=== PATIENT | male | born 2000 | race Caucasian/White ===

== ENCOUNTER 2018-09-22 14:00 | Emergency (ER) | payer BC, OTHER ==
--- NOTE | 2018-09-22 14:14 | PDOC ---
Attending Attestation - Resident Resident Name: Bethany Baig - HPI HPI: 09/22/18 15:21 Pt presents to the ED complaining of nausea and vomiting that occurs at 10 pm each night. Patient feels completely well during other times of the day. Initially, the vomit was blood streaked. This has now resolved, and the vomit now looks like the food he has eaten. However, he has had blood streaked stool for the last two days. Denies abdominal pain, fever, or other complaints. Denies diarrhea or pain with defecation. - Physicial Exam PE: 09/22/18 15:30 Agree with resident exam. Patient is alert and in no acute distress. Abdomen is non tender, non distended without guarding or rebound. - Medical Decision Making 09/22/18 15:31 Pt presents to the ED complaining of blood streaked stool. Hemoccult negative in the ED. Will check labs to evaluate for severe anemia, likely discharge home if negative.
--- NOTE | 2018-09-22 14:37 | PDOC ---
History of Present Illness - General Chief Complaint: Vomiting Blood Stated Complaint: BLOOD IN EMESIS/STOOL Time Seen by Provider: 09/22/18 14:11 History Source: Patient Exam Limitations: No Limitations - History of Present Illness Initial Comments: 09/22/18 14:36 Pt is a previously healthy 18yo M presenting to ED with complaints of hematemesis that occured Wednesday and Wednesday night and an episode of bloody stools today. Pt says every night at 10pm since Wednesday he has been vomiting. Only endorses hematemsis Wednesday and Wednesday with blood in vomitus, not coffee ground. Today he endorses black stools with blood on tp. He went to a [employer] and was told to come to the ED. He denies abdominal pain, drinking, lightheadedness , recent surgeries. abdominal surgery when infant but no problems since then. Past History - Past Medical History Allergies/Adverse Reactions: Allergies Allergy/AdvReac Type Severity Reaction Status Date / Time dapsone Allergy Severe Verified 09/22/18 14:02 Home Medications: Ambulatory Orders NK [No Known Home Medication] 09/22/18 Review of Systems - Review of Systems Constitutional: No: Symptoms Reported HEENTM: No: Symptoms Reported Respiratory: No: Symptoms reported Cardiac (ROS): No: Symptoms Reported ABD/GI: Yes: See HPI, Blood Streaked Bowels, Rectal Bleeding, Vomiting, Tarry Stools. No: Constipated, Diarrhea, Difficulty Swallowing, Nausea, Abdominal cramping : No: Symptoms Reported Musculoskeletal: No: Symptoms Reported Integumentary: No: Symptoms Reported Neurological: No: Symptoms reported *Physical Exam - Physical Exam General Appearance: Yes: Nourished, Appropriately Dressed. No: Apparent Distress HEENT: positive: EOMI, NANCI, Pharynx Normal. negative: Pale Conjunctivae, Scleral Icterus (R), Scleral Icterus (L) Neck: positive: Trachea midline, Supple Respiratory/Chest: positive: Lungs Clear, Normal Breath Sounds. negative: Rales , Rhonchi, Stridor, Wheezing Cardiovascular: positive: Regular Rhythm, Regular Rate, S1, S2. negative: Edema , JVD, Murmur Vascular Pulses: Carotid (R): 2+, Carotid (L): 2+, Dorsalis-Pedis (R): 2+, Doralis-Pedis (L): 2+ Gastrointestinal/Abdominal: positive: Normal Bowel Sounds, Soft. negative: Distended, Guarding, Rebound, Tenderness Rectal Exam: positive: heme negative stool, normal rectal tone. negative: melena, decreased tone, hemorrhoids Musculoskeletal: negative: CVA Tenderness Extremity: positive: Normal Capillary Refill Integumentary: positive: Normal Color, Dry, Warm Neurologic: positive: soda clerk II-XII NML intact, Fully Oriented, Alert, Normal Mood/ Affect, Normal Response, Motor Strength 02/19 ED Treatment Course - LABORATORY CBC & Chemistry Diagram: 09/22/18 14:59 09/22/18 14:59 - ADDITIONAL ORDERS Additional order review: Laboratory Results 09/22/18 14:20 Stool Occult Blood Negative Medical Decision Making - Medical Decision Making 09/22/18 19:12 Pt is a previously healthy 18yo M presenting to ED with complaints of hematemesis that occured Wednesday and Wednesday night and an episode of bloody stools today. Pt says every night at 10pm since Wednesday he has been vomiting. Only endorses hematemsis Wednesday and Wednesday with blood in vomitus, not coffee ground. Today he endorses black stools with blood on tp. He went to [facility] [employer] and was told to come to the ED. He denies abdominal pain, drinking, lightheadedness , recent surgeries. abdominal surgery when infant but no problems since then. Vitals: wnl PE: benign. upper v. lower gi bleed, fistula. -cbc, cmp, pt/inr, stool occult, t+s. All labs wnl. Pt not having any symptoms. Can be DC home. Given follow up for pmd at [facility] and given GI referral. PT is hemodynamically stable and can be dc home. Pt agreed to plan. *DC/Admit/Observation/Transfer Diagnosis at time of Disposition: Vomiting Qualifiers: Vomiting type: hematemesis Nausea presence: without nausea Qualified Code(s): K92.0 - Hematemesis - Discharge Dispostion Disposition: HOME Condition at time of disposition: Good - Referrals - Patient Instructions Additional Instructions: You were seen here today for evaluation of blood in the stool and vomit. Your lab tests show that you do not have blood in the stool and the rest of your labs are normal. I recommend that you see a primary care doctor for further evaluation and management of your symptoms. You can call . There are a few primary care doctors that you can see and schedule an appointment with. If your symptoms continue, you can make an appointment with a GI doctor who specializes with the stomach and intestines. Dr. Rubin: Try not to take NSAID medications like ibuprofen or Advil, refrain from drinking. If you have stomach pains, you can take over the counter antacids like Pepcid or Prilosec. Come back to the emergency room if you continue to have blood in the vomit, you have blood in the stools, you feel lightheaded, you have abdominal pain, you pass out or if any new concerning symptom develops. Thank you - Post Discharge Activity
[2018-09-22 15:01] VITALS: BP 147/83; PULSE 82; TEMP 98; BMI 27.6
[2018-09-22 15:20] LABS: ACTIVATED PTT 25.3 SECONDS (25.2-36.5)
[2018-09-22 15:22] LABS: ALBUMIN 4.4 g/dl (3.5-5.0); ALK PHOS 69 U/L (32-92); ANION GAP 6 MMOL/L (8-16); BILIRUBIN,TOTAL 0.7 mg/dl (0.2-1.0); BLOOD UREA NITROGEN 15 mg/dl (7-18); CALCIUM 9.3 mg/dl (8.4-10.2); CHLORIDE 100 mmol/L (98-107); CO2 29 mmol/L (22-28); CREATININE 0.8 mg/dl (0.6-1.3); GLUCOSE,RANDOM 96 mg/dl (74-106); POTASSIUM 4.2 mmol/L (3.5-5.1); SGOT/AST 25 U/L (10-42); SGPT/ALT 35 U/L (10-40); SODIUM 135 mmol/L (136-145); TOT PROT 7.5 g/dl (6.4-8.3)
[2018-09-22 15:24] LABS: INR 1.17 (0.82-1.09); PROTHROMBIN TIME (PATIENT) 13.1 SEC (10.2-13.0)
[2018-09-22 15:34] LABS: BASO % 0.7 % (0-2.0); EOS % 4.9 % (0-4.5); HEMATOCRIT 48.4 % (35.4-49); HEMOGLOBIN 15.9 GM/dl (11.7-16.9); LYMPH % 27.7 % (8-40); MCH 28.7 pg (25.7-33.7); MEAN CELL VOLUME 86.9 fl (80-96); MEAN PLT VOLUME 8.9 fl (7.5-11.1); MONO % 7.9 % (3.8-10.2); NEUT % 58.8 % (42.8-82.8); PLATELET COUNT 241 K/MM3 (134-434); RBC 5.57 M/mm3 (4.00-5.60); RDW 12.4 % (11.9-15.9); WHITE BLOOD COUNT 7.3 K/mm3 (4.0-10.8)
== END 2018-09-22 16:04 | disposition home or self-care (01) ==
LOC: FER 14:00
DX: K92.0 Hematemesis (principal)
CPT/HCPCS: 36415; 80053; 82272; 83690; 85025; 85610; 85730; 86850; 86900; 86901; 99282-25